=== PATIENT | male | born 1950 | race Caucasian/White ===

== ENCOUNTER 2019-12-21 21:47 | Emergency (ER) | payer OTHER, MEDICARE ==
[2019-12-21] MEDS ORDERED: Morphine 4 MG/ML VIAL ONE (22:07)
[2019-12-21] MEDS ORDERED: Ondansetron PF 4 MG/2 ML Vial ONE (22:07)
[2019-12-21 22:15] LABS: #Basophils 0.1 thou/uL (0.0-0.2); #Eosinphils 0.2 thou/uL (0.0-0.7); #Lymphocytes 3.9 thou/uL (1.20-3.40); #Monocytes 0.8 thou/uL (0.11-0.59); #Neutrophils 4.4 thou/uL (1.40-6.50); %Basophils 1.1 % (0.0-1.0); %Eosinophils 2.5 % (0.0-10.0); %Monocytes 8.7 % (0.0-10.0); %Neutrophils 46.7 % (42.0-75.0); Hemoglobin 14.7 g/dL (14.0-18.0); Mean Corpuscular HGB CONC 31.6 g/dL (32.0-36.0); Mean Corpuscular Hemoglobin 30.5 pg (27.0-31.0); Mean Corpuscular Volume 96.5 fL (78.0-98.0); Mean Platelet Volume 6.9 fL (7.4-10.4); Platelet Count 241 thou/uL (130-400); RBC Distribution Width 12.7 % (11.5-14.5); Red Blood Cell (RBC) Count 4.82 mill/uL (4.70-6.10); White Blood Cell (WBC) Count 9.4 thou/uL (4.8-10.8)
[2019-12-21 22:24] LABS: INR-International Normal Ratio 0.9
[2019-12-21 22:25] LABS: PTT 27.8 sec (22.9-36.1)
[2019-12-21 22:34] LABS: ALT (SGPT) 30 U/L (8-55); AST (SGOT) 27 U/L (5-34); Albumin 4.3 g/dL (3.4-4.8); Alkaline Phosphatase 67 U/L (40-110); Anion Gap 16 mmol/L (10-20); BUN (Urea Nitrogen) 22 mg/dL (8.4-25.7); Bilirubin, Total 0.2 mg/dL (0.2-1.2); Calc. Creatinine Clearance 0 mL/min (70-130); Calcium 9.6 mg/dL (7.8-10.44); Carbon Dioxide 23 mmol/L (23-31); Chloride 109 mmol/L (98-107); Estimated GFR-MDRD 82; Globulin 2.9 g/dL (2.4-3.5); Glucose 114 mg/dL (80-115); Protein, Total 7.2 g/dL (5.8-8.1); Sodium 144 mmol/L (136-145)
[2019-12-22] MEDS ORDERED: Morphine 4 MG/ML VIAL ONE ×2 (00:06→07:58)
[2019-12-22 01:18] LABS: PTT 29.5 sec (22.9-36.1); Prothrombin Time 12.8 sec (12.0-14.7)
[2019-12-22 07:27] LABS: Bilirubin Negative (Negative); Blood, Urine Negative (Negative); Clarity Clear (Clear); Glucose, Urine (Dipstick) Negative (Negative); Leukocyte Negative (Negative); Nitrite Negative (Negative); Protein, Urine (Dipstick) Negative (Neg-Trace); Urobilinogen 0.2 mg/dL (Less than 2)
[2019-12-22] MEDS ORDERED: Ondansetron PF 4 MG/2 ML Vial ONE (07:58)
[2019-12-22] MEDS ORDERED: Adacel (T-DAP) 0.5 ML SYRINGE ONE (08:06)
== END 2019-12-22 08:23 | disposition home or self-care (01) ==
LOC: MADERS 21:47
DX: T63.001A Toxic effect of unspecified snake venom, accidental (unintentional), initial encounter (principal)
CPT/HCPCS: 80053; 81003; 85025; 85384; 85610; 85730; 90471; 90715; 96374; 96375; 96376; J2270; J2405